=== PATIENT | male | born 1960 | race Caucasian/White ===

== ENCOUNTER 2017-05-03 07:10 | Day surgery (SDC) | payer OTHER ==
[~2017-05-03] VITALS: Ht 177.8 cm; Wt 106.6 kg
[2017-05-03 07:35] VITALS: BP 138/80
[2017-05-03 10:30] VITALS: BP 126/84
== END 2017-05-03 09:55 | disposition home or self-care (01) ==
LOC: DS 07:10 → OR 07:30 → GI 08:30 → OR 08:30 → DS 09:55
PROVIDERS: Internal Medicine Gastroenterology
PROC: 0DJD8ZZ Inspection of Lower Intestinal Tract, Via Natural or Artificial Opening Endoscopic (ICD-10-PCS; principal; 2017-05-03 07:30)
DX: Z12.11 Encounter for screening for malignant neoplasm of colon (principal); K57.30 Diverticulosis of large intestine without perforation or abscess without bleeding
CPT/HCPCS: 45378; J1200; J1610; J2250; J2310; J3010; J3490